=== PATIENT | female | born 1990 | race Caucasian/White ===

== ENCOUNTER 2021-09-11 21:55 | Emergency (ER) | payer BC, SELFPAY ==
[2021-09-11 21:59] VITALS: BP 116/74; PULSE 71; RESP 18; TEMP 36.6; O2SAT 100; BMI 32.3
--- NOTE | 2021-09-11 22:10 | ED.EYEPROB ---
HPI - Eye Problem General Time Seen by Provider: 22:10 Date Seen: 09/11/21 Chief complaint: Eye Problems Stated complaint: RIGHT EYE INJURY Time Seen by Provider: 09/11/21 22:09 Source: patient and RN notes reviewed Mode of arrival: ambulatory Limitations: no limitations History of Present Illness HPI Narrative: This 30-year-old female is coming in with right eye irritation on the outer portion of her right eye. She was cleaning a closet today and had plastic piece of a car carrier come back in hit her in the eye accidentally. She is denying any visual changes. She knows she should be wearing glasses in the us that is why her visual acuity is off bilaterally. Her tetanus is up-to-date in she is sure of this as her youngest child is about a year old. She would have had it updated during that . The eyes just irritated in that area. She did wear sunglasses earlier as it seemed to help to not have bright light. chief complaint: eye pain and eye injury Onset (ago): hour(s) Onset description: sudden Duration: constant Location: right eye Related Data Patient tetanus UTD: Yes Home Medications Medication Instructions Recorded Confirmed No Known Home Medications 09/11/21 09/11/21 Allergies Allergy/AdvReac Type Severity Reaction Status Date / Time No Known Drug Allergies Allergy Verified 09/11/21 22:02 Review of Systems Narrative: As per HPI PFSH PFSH Social History Smoking Status: Former smoker How often do you have a drink containing alcohol: never AUDIT-C Alcohol total score: 0 Non-prescribed substance use: denies use Exam Const: Vital Signs, click to edit/add: Vital Signs - 24 hr 09/11/21 21:59 Temperature 97.9 F Pulse Rate [Left P ulse Oximeter] 71 Respiratory Rate 18 Blood Pressure [Ri ght Upper Arm] 116/74 Pulse Oximetry 100 Documenting provider has reviewed patient's vital signs: yes Common normals: no apparent distress HENMT: Common normals: normocephalic, head/scalp atraumatic and hearing grossly normal bilaterally Head and scalp: normocephalic and atraumatic Face and sinus: normal facial exam (Except some redness or irritation of the right conjunctiva laterally noted) Eye: Common normals: PERRL, EOMs intact bilaterally and no scleral icterus Pupil: PERRL Other: Conjunctiva slightly injected just outside the cornea on the right lateral thigh. With magnification and light I can see no retained foreign body. Two drops of tetracaine were applied in she had immediate resolution of her symptoms. Fluorescein was then applied. Wood's light was used to locate the INR was uptake just outside the cornea in a small distribution from about a 8 o'clock to 10 o'clock position along the cornea in conjunctival region. Again no retained foreign bodies. Course Vital Signs Vital signs: Initial Vital Signs Temperature 97.9 F 09/11/21 21:59 Temperature Source Tympanic 09/11/21 21:59 Pulse Rate 71 09/11/21 21:59 Respiratory Rate 18 09/11/21 21:59 Blood Pressure 116/74 09/11/21 21:59 Blood Pressure Mean 88 09/11/21 21:59 Blood Pressure Position Sitting 09/11/21 21:59 Pulse Oximetry 100 09/11/21 21:59 Oxygen Delivery Method 09/11/21 21:59 Vital Signs Temperature 97.9 F 09/11/21 21:59 Pulse Rate 71 09/11/21 21:59 Respiratory Rate 18 09/11/21 21:59 Blood Pressure 116/74 09/11/21 21:59 Pulse Oximetry 100 09/11/21 21:59 Temperature 97.9 F 09/11/21 21:59 Pulse Rate 71 09/11/21 21:59 Respiratory Rate 18 09/11/21 21:59 Blood Pressure 116/74 09/11/21 21:59 Pulse Oximetry 100 09/11/21 21:59 Critical Care Time Critical Care Time Critical Care Time: No Discharge Plan Discharge Clinical Impression: Abrasion of conjunctiva, right Patient Disposition: Home, Self-Care Condition: Stable Instructions: Corneal Abrasion (ED) Additional Instructions: The abrasion is just outside the cornea and technically is on the conjunctiva. We will still treated the same. Tylenol and/or ibuprofen per bottle directions as needed for discomfort. Use the gentamicin eyedrops, 2 drops to the right eye 3 to 4 times a day for the next 1-3 days. You can stop the eyedrops once year [place] is not having any discomfort. If your eye is not completely better in the next 48-72 hours or if it is worsening with symptoms at any point, do need to see an eye doctor and would try to call in paper cone grader for further evaluation. You can patch her eye shut tonight if it is bothering you trying to sleep. Activity Level: Activity as Tolerated Prescriptions: No Action No Known Home Medications 0RF Follow Up/Referrals: Provider,Not a Local [Primary Care Provider] - Stand Alone Forms: [facility] Info Instructions
== END 2021-09-11 22:45 | disposition home or self-care (01) ==
LOC: ED 22:32
PROVIDERS: Emergency Provider Family Medicine
DX: S05.01XA Injury of conjunctiva and corneal abrasion without foreign body, right eye, initial encounter (principal)
CPT/HCPCS: 99282; 99283; A9270

== ENCOUNTER 2023-01-31 17:57 | Emergency (ER) | payer BC, SELFPAY ==
[2023-01-31 18:07] VITALS: BP 131/81; PULSE 95; RESP 18; TEMP 37.7; O2SAT 99; BMI 35.5
--- NOTE | 2023-01-31 18:09 | CRLHL7_ITS ---
For Patients: As a result of the Century Cures Act, medical imaging exams and procedure reports are released immediately into your electronic medical record. You may view this report before your referring provider. If you have questions, please contact your health care provider. INDICATION: Trauma. TECHNIQUE: Right foot radiographs, 2 views. COMPARISON: None. FINDINGS: No acute fractures or dislocation. Joint spaces are preserved. The Lisfranc joint appears unremarkable. No significant soft tissue edema or radiopaque foreign bodies. IMPRESSION: No acute fractures or dislocation. Dictated by Javad Yusuf MD @ 01/31/2023 6:33:38 PM (Electronically Signed)
--- NOTE | 2023-01-31 18:29 | ED.LOWEXIN ---
HPI - Extremity Injury (Lower) General Chief Complaint: Extremity Pain/Injury, Lower Stated Complaint: Right ankle pain, fell Time Seen by Provider: 01/31/23 18:02 History of Present Illness HPI Narrative: This 32-year-old woman comes in with an injury to her right ankle that occurred yesterday. She was ambulating over a curb and twisted her ankle and fell. She states that she scraped her knee but did not have any other injury except the twisting of her right ankle. She did get up and ambulate since then but states that upon awakening this morning she had significant more pain. She also has swelling and bruising over the lateral malleolus and extending down into the foot laterally. Related Data Previous Rx's Medication Instructions Recorded ketorolac 10 mg tablet 10 mg PO Q8H 5 days #15 tabs 01/31/23 Allergies Allergy/AdvReac Type Severity Reaction Status Date / Time No Known Drug Allergies Allergy Verified 09/11/21 22:02 Review of Systems Status of ROS: Reports: 10 or more systems reviewed and unremarkable except as noted in History and below Narrative: Constitutional: No fevers, no weight gain or loss. Eyes: No discharge. No vision changes. HENT: No congestion, no sore throat, no ear pain. Cardiovascular: No chest pain, no palpitations. Respiratory: No shortness of breath, no wheezes, no cough. Gastrointestinal: No abdominal pain, no vomiting, no diarrhea. Genitourinary: No dysuria, no hematuria. Musculoskeletal: Right ankle injury as described above. Skin: No rashes, no pruritis. Neurological: No dizziness, weakness, sensory change, speech change. Endo/Heme/Allergies: No bruising or bleeding. No polydipsia. Pysch: no suicidality, no anxiety, no insomnia. All other systems reviewed and are negative. PFSH PFSH Social History Smoking Status: Former smoker How often do you have a drink containing alcohol: never AUDIT-C Alcohol total score: 0 Non-prescribed substance use: denies use Exam Narrative: Exam Narrative: Constitutional: Well-developed, well-nourished, no acute distress. HEENT: Normocephalic, atraumatic. Neck: Normal range of motion. Nontender. Supple. Heart: Regular. No murmurs. Normal rate. Intact distal pulses. Lungs: Clear to auscultation. No chest discomfort. No wheezes, rhonchi, or rales. Abdomen: Normal bowel sounds. Nontender. No rebound tenderness. Genitalia: Deferred. Back: No midline tenderness. Normal range of motion. Extremities: Swelling and tenderness over the lateral malleolus and the ligaments extending inferiorly to the foot. There is ecchymosis also. No sign of joint effusion or ligament instability. No particular tenderness when palpating directly over the medial and lateral malleolus of the right foot. Skin: Intact. No rash. Warm. No erythema or pallor. Neurologic: No altered sensation. No weakness. Alert and oriented. Psychiatric: No suicidality. No anxiety or depression. No insomnia. Nursing notes and vitals signs are reviewed. Const: Vital Signs, click to edit/add: Vital Signs - 24 hr 01/31/23 18:07 Temperature 99.8 F H Pulse Rate [Pulse Oximeter] 95 Respiratory Rate 18 Blood Pressure [Ri ght Forearm] 131/81 Pulse Oximetry 99 Oxygen Delivery Me thod Room Air Course Vital Signs Vital signs: Initial Vital Signs Temperature 99.8 F H 01/31/23 18:07 Temperature Source Temporal Artery Scan 01/31/23 18:07 Pulse Rate 95 01/31/23 18:07 Respiratory Rate 18 01/31/23 18:07 Blood Pressure 131/81 01/31/23 18:07 Blood Pressure Mean 97 01/31/23 18:07 Pulse Oximetry 99 01/31/23 18:07 Oxygen Delivery Method Room Air 01/31/23 18:07 Vital Signs Temperature 99.8 F H 01/31/23 18:07 Pulse Rate 95 01/31/23 18:07 Respiratory Rate 18 01/31/23 18:07 Blood Pressure 131/81 01/31/23 18:07 Pulse Oximetry 99 01/31/23 18:07 Oxygen Delivery Method Room Air 01/31/23 18:07 Temperature 99.8 F H 01/31/23 18:07 Pulse Rate 95 01/31/23 18:07 Respiratory Rate 18 01/31/23 18:07 Blood Pressure 131/81 01/31/23 18:07 Pulse Oximetry 99 01/31/23 18:07 Oxygen Delivery Method Room Air 01/31/23 18:07 MDM - Extremity Injury (Lower) MDM Narrative Medical decision making narrative: This patient has pain and swelling on the lateral aspect of her right ankle and foot. An x-ray of the right foot was ordered prior to my visit with her. I was able to see her ankle also on these images. Radiology report states no evidence of fracture or malalignment. On exam also the patient does not have any point tenderness when palpating over the lateral malleolus. This patient has an ankle sprain with some ecchymosis but no sign of instability or joint effusion. I did encourage early activity as tolerated. The patient received an Adi wrap and was fitted for crutches. She also received a prescription for Toradol. Imaging Data XR R Foot: Radiologist's impression: No acute fractures or dislocation. Discharge Plan Discharge Clinical Impression: Ankle sprain and strain Patient Disposition: Home, Self-Care Condition: Stable Additional Instructions: Use crutches as needed and increase ambulation as tolerated. Take medication also as needed and directed. Follow up with MD return if worsening. Prescriptions: New ketorolac 10 mg tablet 10 mg PO Q8H 5 Days Qty: 15 0RF Follow Up/Referrals: Provider,Not a Local [Primary Care Provider] - Stand Alone Forms: [facility] Info Instructions
== END 2023-01-31 19:00 | disposition home or self-care (01) ==
PROVIDERS: Emergency Provider Emergency Medicine Emergency Medical Services
DX: S93.401A Sprain of unspecified ligament of right ankle, initial encounter (principal); X50.1XXA Overexertion from prolonged static or awkward postures, initial encounter
CPT/HCPCS: 73620; 99283; 99284

== ENCOUNTER 2023-12-19 19:19 | Emergency (ER) | payer BC, SELFPAY ==
[2023-12-19 19:33] VITALS: BP 149/86; PULSE 108; RESP 16; TEMP 37; O2SAT 98; BMI 35.5
--- NOTE | 2023-12-19 19:47 | ED.EAR ---
HPI - Ear Problem General Date Seen: 12/19/23 Chief complaint: Ear/Nose/Throat Problem Stated complaint: ear pain Time Seen by Provider: 12/19/23 19:42 Source: patient Mode of arrival: ambulatory Limitations: no limitations History of Present Illness HPI Narrative: Patient is a 32-year-old female presenting to the emergency department for left ear pain. She denies having pain like this before. She states it hurts when she touches her ear or pulls on it. Denies any pain around the ear. Has not had any hearing issues. Denies lightheadedness, dizziness, headache, vision changes, fevers, chills. No other concerns noted. Symptoms have not been getting better of the 2 weeks so she came to be evaluated. Related Data Previous Rx's ?Medication ?Instructions ?Recorded ketorolac 10 mg tablet 10 mg PO Q8H 5 days #15 tabs 01/31/23 ofloxacin 0.3 % ear drops 5 drp otic (ear) BID 7 days #10 mL 12/19/23 Allergies Allergy/AdvReac Type Severity Reaction Status Date / Time No Known Drug Allergies Allergy Verified 09/11/21 22:02 Review of Systems Narrative: Pertinent systems reviewed and were negative unless stated in HPI PFSH PFSH Social History Smoking Status: Former smoker Do you use any of these nicotine containing products: None Second hand tobacco smoke exposure: No How often do you have a drink containing alcohol: never How often do you have six or more drinks on one occasion: Never AUDIT-C Alcohol total score: 0 Non-prescribed substance use: denies use service: No Exam Narrative: Exam Narrative: Const: Well-nourished, Well-developed, in mild distress Eyes: PERRL, no conjunctival injection, and symmetrical lids HENT: Atraumatic external nose and ears. Tenderness when pulling on the left ear. No tenderness noted to right ear. Also tenderness during exam when visualizing tympanic membrane. Bilateral tympanic membranes look normal. No tenderness around the ear. Moist mucous membranes. Neck: Symmetric, trachea midline, No thyromegaly. Skin: Warm, Dry. No rashes or lesions. Neuro: Normal Muscle tone, No focal neurological deficits. Psych: Awake, Alert, & Oriented x3. Appropriate mood and affect. Const: Vital Signs, click to edit/add: Vital Signs - 24 hr 12/19/23 19:33 Temperature 98.6 F Pulse Rate [Left P ulse Oximeter] 108 H Respiratory Rate 16 Blood Pressure [Ri ght Upper Arm] 149/86 H Pulse Oximetry 98 Oxygen Delivery Me thod Room Air Course Vital Signs Vital signs: Initial Vital Signs Temperature 98.6 F 12/19/23 19:33 Temperature Source Temporal Artery Scan 12/19/23 19:33 Pulse Rate 108 H 12/19/23 19:33 Pulse Rhythm Regular 12/19/23 19:33 Respiratory Rate 16 12/19/23 19:33 Blood Pressure 149/86 H 12/19/23 19:33 Blood Pressure Mean 107 H 12/19/23 19:33 Blood Pressure Position Sitting 12/19/23 19:33 Pulse Oximetry 98 12/19/23 19:33 Oxygen Delivery Method Room Air 12/19/23 19:33 Vital Signs Temperature 98.6 F 12/19/23 19:33 Pulse Rate 108 H 12/19/23 19:33 Respiratory Rate 16 12/19/23 19:33 Blood Pressure 149/86 H 12/19/23 19:33 Pulse Oximetry 98 12/19/23 19:33 Oxygen Delivery Method Room Air 12/19/23 19:33 Temperature 98.6 F 12/19/23 19:33 Pulse Rate 108 H 12/19/23 19:33 Respiratory Rate 16 12/19/23 19:33 Blood Pressure 149/86 H 12/19/23 19:33 Pulse Oximetry 98 12/19/23 19:33 Oxygen Delivery Method Room Air 12/19/23 19:33 Medical Decision Making MDM Narrative Medical decision making narrative: Patient is a 32-year-old female presenting for left ear pain. Based on exam appears to be otitis externa. No signs of otitis media. Is not having any signs of mother did otitis externa or mastoiditis at this time. Will be discharged with ear drops. She is agreeable to this plan. Discharge Plan Discharge Clinical Impression: Otitis externa Qualifiers: Otitis externa type: unspecified type Chronicity: acute Laterality: left Qualified Code(s): H60.502 - Unspecified acute noninfective otitis externa, left ear Patient Disposition: Home, Self-Care Condition: Stable Instructions: Swimmer's Ear (ED) Additional Instructions: Use the antibiotics as directed. Return to emergency department for new or worsening symptoms. Take Tylenol and ibuprofen for pain Prescriptions: New ofloxacin 0.3 % drops 5 drp otic (ear) BID 7 Days Qty: 10 0RF Rx Instructions: Make sure to lay on your side for 3 minutes after the drops are placed so that they can absorb in No Action ketorolac 10 mg tablet 10 mg PO Q8H 5 Days Qty: 15 0RF Follow Up/Referrals: Provider,Not a Local [Primary Care Provider] - Stand Alone Forms: [facility] Info Instructions
== END 2023-12-19 20:04 | disposition home or self-care (01) ==
LOC: ED 19:59
PROVIDERS: Emergency Provider Student in an Organized Health Care Education/Training Program
DX: H60.502 Unspecified acute noninfective otitis externa, left ear (principal)
CPT/HCPCS: 99282; 99283

== ENCOUNTER 2024-11-11 02:49 | Emergency (ER) | payer BC, SELFPAY ==
--- OUTSIDE RECORDS SUMMARY | 2024-11-11 02:51 | XMS_ITS | Clinical Summary ---
Author Organization [employer] [facility] Address [address] [place] [id number] Care Team Providers Care Application Development Liaison Name Role Phone Pcp, No Primary Care Provider Unavailabl e Allergies No known active allergies Medications No known medications Active Problems Problem Noted Date Diagnosed Date Normal labor and delivery 08/04/2020 Methamphetamine abuse 04/21/2017 Suicidal ideation 04/21/2017 04/21/2017 Immunizations Immunization Administration Dates Next Due Hepatitis B, Unspecified 05/15/2001,03/13/2001,0 11/16/2000 Influenza A (H1N1), Inactiva khushi (Age >=3 Years) 01/07/2009 Influenza Virus, Unspecified 01/03/2013 Influenza, IIV3 (Age >=3 years) 10/29/2008 MMR 03/13/2001 Tdap 03/01/2010 Social History Tobacco Use Types Packs/Day Years Used Date Smoking Tobacco: Every Day Cigarettes 0.5 22.6 Started: 04/21/2002 Smokeless Tobacco: Never Tobacco Cessation:Ready to Q uit: No; Counseling Given: Yes Alcohol Use Standard Drinks/Week Comments No 0 (1 standard drink = 0.6 oz pur e alcohol) Comments No Sex and Gender Information Value Date Recorded Sex Assigned at Not on file Legal Sex Female 7:16 AM [employer] Gender Identity Not on file Sexual Orientation Not on file Obstetrics History Para Term AB IAB SAB Ectopic Multiple Livin g Live Births 4 4 4 0 0 0 0 0 0 4 4 Date Outcome GA Total Labor Labor/2nd/3rd Weight Sex Type Anes PTL Leigha A1 A5 Name Clin 2008 Term 40w 0d 2.81 kg (6 lb 3 oz) F Vag Epidur al Livin g Delivery Location:Hospital 2017 Term 40w 4d 3.08 kg (6 lb 12.6 oz) M Vag Epidur al Livin g Delivery Location:[facility] 2018 Term 39w 5d 3.69 kg (8 lb 2 oz) F Vag Epidur al Livin g Complications:Shoulder Dysto christianne Delivery Location:[facility] 2020 Term 40w 2d 5h 09m 4h 47m/0h 17m/0h 05m 4.07 kg (8 lb 15.6 oz) M Vag-S pont Epidur al Livin g 9 10 MACARIO DA SILVA, Cecilio Hughes MD Complications:None Delivery Location:H[facility] ( [facility]) Last Filed Vital Signs Vital Sign Reading Time Taken Comments Blood Pressure 137/80 06/30/2021 5:16 PM CDT Pulse 76 06/30/2021 5:16 PM CDT Temperature 36.8 C (98.3 F) 06/30/2021 5:16 PM CDT Respiratory Rate 18 06/30/2021 5:16 PM CDT Oxygen Saturation 99% 06/30/2021 5:16 PM CDT Inhaled Oxygen Concentration - - Weight 103.6 kg (228 lb 6.4 oz) 06/30/2021 5:16 PM CDT Height 167.6 cm (5' 6) 2020 7:43 PM CDT Body Mass Index 36.86 2020 7:43 PM CDT Plan of Treatment Health Maintenance Due Date Last Done Comments Hepatitis C screening for ag e 18-79 2006 Pap test for age 21-65 2009 HPV series for age 9-45 (1 - 3-dose SCDM series) 12/24/2015 BMI (ht and wt on same day) for age 18+ 05/28/2016 05/29/2015 Depression screening for age 12+ 04/21/2018 04/21/2017 Tetanus booster 03/01/2020 03/01/2010 COVID-19 vaccine series ( season) 2024 Influenza Vaccine (#1) 2024 3, 10/29/2008 RSV vaccine for adults or (1 - 1-dose 75+ series) 12/24/2063 Hepatitis B series for 19+ Completed 05/15, 03/13/2001, 11/16/2000 HIV for age 15-65 Completed 01/14/2020 Pneumococcal series for age 6-49 Aged Out No longer eligible b ased on patient's age to complete this topic Procedures Procedure Name Priority Date/Time Associated Diagnosis Comments HIV EXTERNAL Routine 01/14/2020 from Last 3 Months or Most Recently Relevant to Health Maintenance Results * HIV EXTERNAL (01/14/2020) EXTERNAL HIV Negative [facility] Blood BLOOD SPECIMEN / Unknown us Kendall Tovar MD LABORATORY Final Result [facility] [address] [place] [address], from Last 3 Months or Most Recently Relevant to Health Maintenance Insurance [facility] Member Subscriber Plan / Payer (Ef fective 2015-Present) Name:Meche Da Silva Relation to Subscriber:Self Name:Meche Da Silva Payer ID:[id number] (NAIC) Group ID:[id number] Type:Not on file Address: [facility] [id number] [place] [address] [facility] [address] [place] [address] Advance Directives * Full Code (Latest Code Status on File) Date Activated Date Inactivated Comments 08/04/2020 7:30 AM 08/05/2020 10:16 PM Question Answer Comments Code Status Discussion: Not Discussed * Full Code Date Activated Date Inactivated Comments 04/21/2017 2:31 PM 04/24/2017 2:57 PM Care Teams Application Development Liaison Relationship Specialty Start Date End Date Pcp, No . PCP - General 07/22/05
[2024-11-11 02:53] VITALS: BP 174/116; PULSE 80; RESP 18; TEMP 36.7; O2SAT 98; BMI 38.3
--- NOTE | 2024-11-11 03:12 | ED_ITS ---
HPI - General Adult General Chief complaint: Unspecified Complaint, Adult Stated complaint: possibly swallowed foreign object Time Seen by Provider: 11/11/24 03:00 Source: patient Mode of arrival: ambulatory Limitations: no limitations History of Present Illness HPI narrative: 33-year-old female presents to the emergency department in the wee hours a day and a half after she ingested some birthday cake that may have had a piece of confetti on it. She does bring some confetti with her as an example. She reports that she had some scratchiness in her throat and is worried about foreign body ingestion. She has no fever. She is not vomiting blood. She is not short of breath. She did not ingest any dangers item like a button battery, fish bones or other similar abnormality. She has eaten and drank several times since the event. She has not tried taking Tylenol or ibuprofen. When asked, she declines swabs for COVID or strep to look for other etiologies for her throat irritation. She is not immunocompromised, she has no history of throat surgery. Denies long-term medications or allergies. ROS is notable for the HEENT symptoms. Denies fever, other GI or HEENT or respiratory changes. Related Data Previous Rx's ?Medication ?Instructions ?Recorded ketorolac 10 mg tablet 10 mg PO Q8H 5 days #15 tabs 01/31/23 ofloxacin 0.3 % ear drops 5 drp otic (ear) BID 7 days #10 mL 12/19/23 Allergies Allergy/AdvReac Type Severity Reaction Status Date / Time No Known Drug Allergies Allergy Verified 09/11/21 22:02 [facility] Social History Smoking Status: Former smoker Do you use any of these nicotine containing products: None Second hand tobacco smoke exposure: No How often do you have a drink containing alcohol: never How often do you have six or more drinks on one occasion: Never AUDIT-C Alcohol total score: 0 Non-prescribed substance use: denies use service: No Exam Const: Vital Signs, click to edit/add: Vital Signs - 24 hr 11/11/24 02:53 Temperature 98.0 F Pulse Rate [Pulse Oximeter] 80 Respiratory Rate 18 Blood Pressure [Ri ght Upper Arm] 174/116 H Pulse Oximetry 98 Oxygen Delivery Me thod Room Air Common normals: no apparent distress General appearance: comfortable HENMT: Common normals: normocephalic, moist oral mucous membranes, oropharynx normal and dentition normal Head and scalp: normocephalic Face and sinus: normal facial exam Mouth: oral and palatal mucosa normal Eye: Common normals: conjunctivae normal General eye: normal appearance of both eyes Conjunctiva: conjunctiva(e) normal Neck & C-Spine: Common normals: full ROM and no lymphadenopathy General: normal visual inspection Resp: Common normals: normal respiratory effort, no use of accessory muscles and clear to auscultation bilaterally Effort & inspection: able to speak in complete sentences Auscultation: clear to auscultation bilaterally Psych: Appearance: grossly normal Mood and affect: anxious Skin: Common normals: no rashes or lesions noted General skin exam: no rashes or lesions noted Course Course ED Course: 33-year-old female with possible confetti foreign body ingestion a day and a half ago with no signs of airway or esophageal obstruction. Counseled patient that at this point there really is no medical intervention needed. She will pass the confetti unchanged or it will eventually be dissolved by her immune system or digestive system. We reviewed the alarm symptoms that would warrant an emergency room evaluation such as inability to hold down water, signs of airway obstruction, persistent bloody vomit, etc.. She is encouraged use Tylenol and ibuprofen as needed for mild discomfort and is cleared to return to work at this time. She was offered swabs for strep and COVID to look for other etiologies for throat irritation and she declines these at this time. Vital Signs Vital signs: Initial Vital Signs Temperature 98.0 F 11/11/24 02:53 Temperature Source Temporal Artery Scan 11/11/24 02:53 Pulse Rate 80 11/11/24 02:53 Pulse Rhythm Regular 11/11/24 02:53 Respiratory Rate 18 11/11/24 02:53 Blood Pressure 174/116 H 11/11/24 02:53 Blood Pressure Mean 135 H 11/11/24 02:53 Blood Pressure Position Sitting 11/11/24 02:53 Pulse Oximetry 98 11/11/24 02:53 Oxygen Delivery Method Room Air 11/11/24 02:53 Vital Signs Temperature 98.0 F 11/11/24 02:53 Pulse Rate 80 11/11/24 02:53 Respiratory Rate 18 11/11/24 02:53 Blood Pressure 174/116 H 11/11/24 02:53 Pulse Oximetry 98 11/11/24 02:53 Oxygen Delivery Method Room Air 11/11/24 02:53 Temperature 98.0 F 11/11/24 02:53 Pulse Rate 80 11/11/24 02:53 Respiratory Rate 18 11/11/24 02:53 Blood Pressure 174/116 H 11/11/24 02:53 Pulse Oximetry 98 11/11/24 02:53 Oxygen Delivery Method Room Air 11/11/24 02:53 Discharge Plan Discharge Clinical Impression: Foreign body ingestion Patient Disposition: Home, Self-Care Condition: Stable Instructions: Esophageal Foreign Body (ED) Additional Instructions: Accidental ingestions of nonfood items is very common. We typically only worry if there are persistent signs of full obstruction, meaning you are unable to get down water or other very soft foods. It is common that there be some scratchiness and irritation. Based on what you suspect he may have ingested, there would not be any reason to work this up further as long as you are able to drink water. We tend to worry if there are objects like fish bones, button batteries or other highly caustic items. Even metallic coated decorative items like the confetti your suggesting would not need attention. This will either be digested, dissolved by your immune system, or pass through the stool unchanged. You do not need to monitor your stool. It is okay to use Tylenol 1000 mg every 6 hours for throat irritation and or ibuprofen 600 mg every 6 hours. These types of things do not need to come to the emergency room unless they are for full obstructions, ingestion of dangerous items like button batteries, fish bones or other very high yield serious items or if you are unable to swallow water or have persistent vomiting of blood. You are released to return to work and or school duties with no restrictions at this time. Activity Level: No Restrictions Discharge Diet: Regular Prescriptions: No Action ofloxacin 0.3 % drops 5 drp otic (ear) BID 7 Days Qty: 10 0RF Rx Instructions: Make sure to lay on your side for 3 minutes after the drops are placed so that they can absorb in ketorolac 10 mg tablet 10 mg PO Q8H 5 Days Qty: 15 0RF Follow Up/Referrals: Provider,Not a Local [Non-Staff, Family Practice] Stand Alone Forms: MyHealth Info Instructions
== END 2024-11-11 03:24 | disposition home or self-care (01) ==
LOC: ED 03:13
PROVIDERS: Emergency Provider Family Medicine; PCP Nurse Practitioner Pediatrics
DX: T18.9XXA Foreign body of alimentary tract, part unspecified, initial encounter (principal)
CPT/HCPCS: 99281; 99283